=== PATIENT | female | born 1965 | race Caucasian/White ===

== ENCOUNTER 2018-03-15 05:40 | Day surgery (SDC) | payer OTHER ==
[~2018-03-15] VITALS: Ht 167.6 cm; Wt 64.9 kg
[~2018-03-15 05:40] MED LIST: CELEBREX200 MG PO; GABAPENTIN100 MG PO
[2018-03-15] MEDS ORDERED: MAPAP325 MG PO (09:00)
[2018-03-15] MEDS ORDERED: OXYCODON-ACETA1 EAC2 PO (09:00)
[2018-03-15] MEDS ORDERED: IBUPROFEN600 MG PO (09:00)
--- NOTE | 2018-03-15 09:00 | NUR ---
03/15/18 0900 Loretta Glass 0854 PATIENT ARRIVES TO PACU SLEEPING, MOANS OFF/ON. RESP EVEN AND UNLABORED, NC AT 2 LITERS.
--- NOTE | 2018-03-15 09:52 | NUR ---
PT IS BACK TO DS FROM PACU. SHE IS COMFORTABLE, REQUESTS A WARM BLANKET. FAMILY AT THE BESIDE. NO OTHER C/O'S AT THIS TIME. WILL REASSESS WITHIN THE HOUR.
--- NOTE | 2018-03-15 10:46 | NUR ---
PT REPORTS FEELING MORE AWAKE. FAMILY IS AT THE BEDSIDE. SHE HAS BEEN SIPPING ON WATER WITHOUT ISSUES. SHE WOULD LIKE SOMETHING FOR HER PAIN. NO OTHER C/O'S AT THIS TIME. WILL REASSESS WITHIN THE HOUR.
--- NOTE | 2018-03-15 11:42 | NUR ---
VINICIO 1115: PT IS ASSITED UP OOB TO THE BATHROOM. SHE WAS ABLE TO VOID 400MLS OF PALE YELLOW URINE
--- NOTE | 2018-03-15 12:00 | NUR ---
VINICIO 1150: PT VERBALIZES THAT SHE WOULD LIKE TO GO HOME AT THIS TIME. SHE IS EDUCATED ON HOW BEST TO GET DRESSED AND HER BANDAGES ARE REINFORCED. DC INSTRUCTIONS ARE GIVEN IN FRONT OF DAUGHTER.
--- NOTE | 2018-03-16 12:51 | OR ---
[facility] [address], [place] [address] Signed DATE OF OPERATION: 03/15/2018 SURGEON: Karen Winn MD PREOPERATIVE DIAGNOSES: 1. Persistent left pelvic pain. 2. History of abdominal hysterectomy in 1996 with preservation of tubes and ovaries. 3. History of left salpingo-oophorectomy (Dr. Zuniga, 2011) with lysis of adhesions. POSTOPERATIVE DIAGNOSIS: Scar tissue with persistent left ovarian tissue, left pelvic sidewall. PROCEDURES: 1. Laparoscopy with lysis of adhesions of sigmoid and pelvic sidewall. 2. Laparoscopic excision of left ovarian remnant. ANESTHESIA: General endotracheal; Consuelo Jamie, CHIEF PORT DIRECTOR, and local 20 mL of 0.25% Marcaine with epinephrine. INDICATION: This 52-year-old white woman is referred by Dr. Tolu Box of [place], [place]. She has persistent left lower abdominal and pelvic pain. Dr. Box performed colonoscopy, which was normal including no evidence of diverticulosis. Extensive evaluation on my part has shown no clear evidence of abnormality including CT scan that has been performed. Of note, the patient underwent hysterectomy with a Pfannenstiel incision in 1986 with preservation of tubes and ovaries and on January 08, 2012 underwent laparoscopy with left salpingo-oophorectomy and extensive lysis of adhesions by Dr. Lucy Zuniga. Findings at that time were said to have included extensive adhesions in the left pelvis related to the sigmoid. The left tube and ovary were found to be adherent to the bowel and sidewall. The left tube and ovary were excised at that time. The patient has had persisting left pelvic pain, rated 3/10, sometimes worsening. She is not known to have history of endometriosis. She is admitted at this time to undergo laparoscopy in hopes of discovering the source of her problem as well as remedy if possible. She understands as does her family, the risks of bleeding, infection, bowel injury, ureteral injury, and most importantly failure to cure her symptoms. Understands that she wished to proceed. FINDINGS: Electronically Signed By: KAREN WINN MD 03/16/18 1251 PATIENT NAME: PAOLO JONES OPERATIVE REPORT DATE OF : 69 REPORT #: [id number] PHYSICIAN: KAREN WINN MD PCP: TOLU BOX DO REPORT IS CONFIDENTIAL AND NOT TO BE RELEASED WITHOUT AUTHORIZATION [facility] [address], [place] [address] Signed Overall, the abdominal contents were normal. I did not see extensive adhesions of small bowel in any way. The left colon did have scar tissue in the medial aspect to the pelvis, which ultimately was found to have dense adhesions and what I believe to be persistence of ovarian remnant. This was dissected free from the pelvic sidewall freeing it entirely and excising a 2 cm remnant of dense white tissue, most likely a remnant of ovarian tissue. The right tube and ovary appeared normal and were left in situ. The colon showed no evidence of neoplasia or inflammatory change or diverticular change. The small bowel was normal in particular the terminal ileum as was the cecum. The liver appeared normal as did the stomach. I believe that her pain is likely related to scar tissue from remnant of ovarian tissue in the left pelvic sidewall and believe that she will be much improved with the operative intervention undertaken. DESCRIPTION OF PROCEDURE: The patient was brought to the operating room, given a general endotracheal anesthetic. She received preoperative antibiotic Ancef. Sequential compression device stockings were used and heparin subcutaneously administered. The abdomen was prepared with a chlorhexidine solution and draped sterilely. Of note, she had a well-healed low Pfannenstiel incision. A Stevenson catheter was not placed on this occasion. An infraumbilical incision was made and using an open Sara cannula technique, the abdomen was entered without problem. Pneumoperitoneum was achieved to a level of 14 mmHg and ultimately changed to 10 mmHg with carbon dioxide gas. Intraabdominal inspection showed no sign of ascites or carcinomatosis. Survey of the abdomen showed the liver and upper abdominal contents to be normal. The small bowel had some dilated loops with no sign of interloop adhesions or anything of that sort. A 12 mm epigastric port was placed and a camera was placed to that area. Using the blunt probe, manipulation was undertaken in the region of the sigmoid and sigmoid appeared normal. The left lower abdominal trocar was placed 5 mm in size, allowing for two-hand manipulation. There appeared to be some adhesions or scarring of the sigmoid to the pelvic brim, but these were left for later. Examination of the right adnexa showed remnant of tube and remnant of ovary to be normal. There was no evidence of endometriosis in the pelvis or elsewhere. The cecum was evaluated and found to be normal. The terminal ileum was normal. Small bowel was run proximally for a distance showing no sign of Meckel's diverticulum or other abnormality. The table was placed in the Trendelenburg position and further manipulation undertaken in the area of the sigmoid. Close inspection of the sigmoid colon showed no sign of Electronically Signed By: KAREN WINN MD 03/16/18 1251 PATIENT NAME: PAOLO JONES OPERATIVE REPORT DATE OF : 69 REPORT #: [id number] PHYSICIAN: KAREN WINN MD PCP: TOLU BOX DO REPORT IS CONFIDENTIAL AND NOT TO BE RELEASED WITHOUT AUTHORIZATION [facility] [address], [place] [address] Signed diverticulosis. There was a small jelly-like concretion on the surface of the colon, but it was the only one and it was of little import. The pelvis itself appeared normal. There was surgical absence of the uterus. The area of dense scarring of the sigmoid to the pelvic sidewall was then more carefully interrogated and with meticulous care manipulated. Lysis of adhesions was undertaken with blunt and sharp dissection ultimately revealing a point of more significant adhesions and a dense white scar-like area. This appeared to be over the iliac vein area and not far from the iliac artery proper. With careful manipulation, this mass was dissected free using blunt and minimal amounts of electrocautery, ultimately found likely to be a remnant of the left ovarian tissue from prior left salpingo-oophorectomy. It was definitely scarred to the sigmoid and pelvic sidewall and with great amount of care was dissected free completely and fully excised. Photographs were taken throughout. The remnant was about 2 cm in length and was extracted through the infraumbilical port using a grasping device to covering the lesion entirely. This was sent for permanent pathology. Irrigation was undertaken in the operative site. Excellent hemostasis was noted. Incomplete freeing the scar tissue accomplished. Excess irrigation fluid was suctioned free and the trocars removed under direct visualization showing no sign of bleeding. The infraumbilical fascial incision was reapproximated with interrupted 0 Vicryl suture. All wounds were copiously irrigated with saline solution and 20 mL of 0.25% Marcaine with epinephrine was injected locally. The skin was closed with interrupted 3-0 Vicryl and Steri-Strips were applied. The patient was ultimately extubated and transferred to recovery room in good condition having suffered no complications. Sponge, needle, and instrument counts were as correct x3. MD SAY Gee/MODL /[id number] cc: Tolu Box DO Copies: TOLU BOX DO ~ Electronically Signed By: KAREN WINN MD 03/16/18 1251 PATIENT NAME: PAOLO JONES OPERATIVE REPORT DATE OF : 69 REPORT #: [id number] PHYSICIAN: KAREN WINN MD PCP: TOLU BOX DO REPORT IS CONFIDENTIAL AND NOT TO BE RELEASED WITHOUT AUTHORIZATION
== END 2018-03-15 11:55 | disposition home or self-care (01) ==
LOC: DS 05:40
PROVIDERS: Surgery
PROC: 0UN14ZZ Release Left Ovary, Percutaneous Endoscopic Approach (ICD-10-PCS; principal; 2018-03-15 06:45)
DX: N83.8 Other noninflammatory disorders of ovary, fallopian tube and broad ligament (principal); N73.6 Female pelvic peritoneal adhesions (postinfective); Z90.710 Acquired absence of both cervix and uterus; Z90.721 Acquired absence of ovaries, unilateral; Z98.51 Tubal ligation status; Z91.040 Latex allergy status
CPT/HCPCS: 00840; J0131; J0690; J0735; J1100; J1644; J1885; J2250; J2405; J2550; J2704; J2765; J3475; J7120

== ENCOUNTER 2018-09-13 06:50 | Day surgery (SDC) | payer OTHER ==
[~2018-09-13] VITALS: Ht 167.6 cm; Wt 64.4 kg
[~2018-09-13 06:50] MED LIST changes: +IBUPROFEN600 MG PO; +MAPAP325 MG PO; +OXYCODON-ACETA1 EAC2 PO
--- NOTE | 2018-09-13 11:30 | NUR ---
09/13/18 1130 Michelle Borges 1123-PATIENT ARRIVED TO PACU ON 6L MASK O2 SAT 100% PATIENT REACTIVE TO VOICE BARELY OPENS EYES. RR EVEN. SR. LEFT LEG DRESSING CDI. LEFT LEG ELEVATED ON PILLOW. 1129-PATIENT SLEEPING VERY DROWSY AROUSES TO VERBAL STIMULI RAISES HAND AND DOZES BACK TO SLEEP. RR EVEN.
--- NOTE | 2018-09-13 12:16 | NUR ---
PT ALERT, ORIENTED AND SUPPORTED BY HER DAUGHTER ABBY. PT SEEMS PREPARED, HAD FEW QUESTIONS-REQUESTED PRAYER. WILL FOLLOW NEEDED
--- NOTE | 2018-09-13 12:30 | NUR ---
PT ARRIVED FROM PACU. REPORT RECEIVED FROM PRIETO GO. PT FEELS NEED TO VOID. BED CEJA PROVIDED, PT UNSUCESSFUL. ATTEMPTED TO GET UP TO COMODE, BUT NAUSEA STARTED. ZOFRAN GIVEN. ASSESSMENT DONE. CONTINIOUS PULSE OX PLACED. PT STATES NAUSEA "IS GONE." PT ASSISTED UP TO COMODE, VOIDS 600ML WITH OUT ISSUE. PT BACK TO BED, TOLERATED WELL. LEFT LEG ELVATED ON PILLOW AND WITH FOOT OF BED RAISED. PT DEMONSTARTES USE OF CALL LIGHT. NO ADDITIONAL REQUESTS OR COMPLAINTS AT THIS TIME. BED RAILSUP. FAMILY AT BEDSIDE.
--- NOTE | 2018-09-13 13:37 | NUR ---
PT RESTING IN BED ON M/S FOLLOWING SURGERY. SHE IS EATING CRACKERS-SAID HER STOMACH FEELS BETTER NOW. PARENTS IN RM VISITING, PT ACKNOWLEDGED PAIN AT 4. I EXTENDED A BLESSING, WILL FOLLOW NEEDED
--- NOTE | 2018-09-13 15:17 | NUR ---
THIS RN TO ROOM TO CHECK ON PT. PT REPORTING 5/10 PAIN THAT "IS COMING BACK UP." SEE MAR FOR MEDICATION GIVEN. PT DENIES NAUSEA. ICE CREAM AND COFFEE PROVIDED PER PT REQUEST. VITALS TAKEN. PT STATES SHE HAS NO ADDITIONAL REQUESTS OR COMPLAINTS AT THIS TIME.
--- NOTE | 2018-09-13 16:57 | NUR ---
AFTERNOON ASSESSMENT DUE. THIS RN TO BEDSIDE. PT REPORTS 5/10 PAIN AND STATES IT SEEMS TO BE GETTING WORSE. ASSESSMENT DONE. CMS INTACT. DRESSING GISELA. MD CALLED. NEW ORDER FOR PAIN MEDICATIONS PLACED. MEDICATION GIVEN (SEE MAR). PT ASSISTED UP TO COMODE. VOIDS AND BACK TO BED WITHOUT ISSUE, TOLERATED WELL. PT WATCHING TV. NO ADDITIONAL REQUESTS OR COMPLAINTS. BED RAILS UP. CALL LIGHT WITHIN REACH. PT ANTICIPATING VISIT FROM GRANDDAUGHTER.
--- NOTE | 2018-09-13 17:29 | NUR ---
PATIENT RESTING IN BED. DAUGHTER IN ROOM. VITAL SIGNS AND I&O DONE. ICE WATER GIVEN. CALL LIGHT WITHIN REACH. NO OTHER NEEDS AT THIS TIME.
--- NOTE | 2018-09-13 18:12 | OR ---
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 PROCEDURE: Excision of recurrent greater accessory varicose veins by stab phlebectomy technique, less than 20 incisions total. ANESTHESIA: General endotracheal; Consuelo Ayala CRNA. INDICATION: This 52-year-old white woman is a patient of Dr. Tolu Box, and known to me from the past having undergone laparoscopy with excision of a retained left ovarian remnant causing chronic pelvic pain. This operation occurred on March 15, 2018. She has had complete resolution of her pelvic pain since that time. The patient has undergone stab phlebectomy of varicose veins in the distant past and is noted to have market symptomatic recurrence of giant varicose veins extending from the medial aspect of the left leg extending over her knee and inferiorly as well. There were additional accessory varicose veins in the medial aspect of the calf and lateral aspect as well. Conservative measures have been ineffective in controlling her pain. She was admitted at this time to undergo excision of recurrent giant varicose veins, which are symptomatic. A stab phlebectomy technique will be used. The risks of bleeding, infection, recurrent varicose veins, and other unforeseen complications were reviewed in detail. She understands and wished to proceed. FINDINGS: The dominant venous disease was well marked in the anesthesia preoperative area allowing for accurate excision of the offending veins. Extended from the upper part of the left Electronically Signed By: KAREN WINN MD 09/13/18 1812 PATIENT NAME: PAOLO JONES OPERATIVE REPORT DATE OF : 69 REPORT #: [id number] PHYSICIAN: KAREN WINN MD PCP: TOLU BOX DO REPORT IS CONFIDENTIAL AND NOT TO BE RELEASED WITHOUT AUTHORIZATION [facility] [address], [place] [address] Signed mid thigh and directly over the knee including below the knee medially and laterally. Typical stab phlebectomy technique was used. Classification of the stab phlebectomy would be 10-20 stab incisions. There were some perforated vessels that were divided and ligated as well. DESCRIPTION OF PROCEDURE: The patient was brought to the operating room, given a general endotracheal anesthetic. Preoperative antibiotic Ancef was given. Sequential compression device stocking was used on the right leg and heparin subcutaneously administered. The marking from preoperative marking of the varicose veins was well demonstrated. After satisfactory general endotracheal anesthesia, the left leg was prepared with a chlorhexidine solution and draped sterilely. In the upper medial thigh, transverse incision was made with a #15 blade over the area designated as varicose vein. Dissection carried through the dermis sharply and with blunt dissection and hemostat. Large bulky vein was encountered and secured with a hemostat and using DeBakey forceps and hemostat technique, dissection was carried superior to its highest length. Hemostat applied. The vein divided and ligated with 3-0 Vicryl tie. Dissection was begun inferiorly with similar technique and once maximum length was obtained with dissection, a transverse incision was made more inferiorly. Sequential stab phlebectomy was undertaken throughout delivering the vein through the tunnel created. In the medial lower thigh, a perforating vessel was identified, secured, divided and ligated with 3-0 Vicryl as well. Multiple stab wounds were made in this way minimizing the number as much as possible, but certainly approaching 20 in total. Dissection was carried to accessory channels medially and laterally as well, which were much smaller vessels of course. The dominant vessels which were over the knee were similarly excised extending below the knee, mostly to the medial aspect to lateral as well. Once completed, the specimens of veins were sent for permanent pathology. At least two of perforated sites were secured with Vicryl ties as well. There was no untoward bleeding. The wounds were closed with single interrupted 2-0 Vicryl and Steri-Strips. The leg was then wrapped with Kerlix, subsequently an Brendan wrap and ultimately a loosely applied Coban dressing. Leg elevation was obtained. The patient was ultimately extubated and transferred to recovery room in good condition having suffered no complication. Sponge, needle, and instrument counts reported as correct x3. Karen Winn MD /MODL /[id number] Electronically Signed By: KAREN WINN MD 09/13/181811 PATIENT NAME: PAOLO JONES OPERATIVE REPORT DATE OF : 69 REPORT #: [id number] PHYSICIAN: KAREN WINN MD PCP: TOLU BOX DO REPORT IS CONFIDENTIAL AND NOT TO BE RELEASED WITHOUT AUTHORIZATION [address] [address] Signed cc: Tolu Box DO Copies: TOLU BOX DO ~ Electronically Signed By: KAREN WINN MD 09/13/18 1812 PATIENT NAME: PAOLO JONES OPERATIVE REPORT DATE OF : 69 REPORT #: [id number] PHYSICIAN: KAREN WINN MD PCP: TOLU BOX DO REPORT IS CONFIDENTIAL AND NOT TO BE RELEASED WITHOUT AUTHORIZATION
--- NOTE | 2018-09-13 18:17 | NUR ---
PT POST OP DAY ZERO FOR VERICOUS VEIN REMOVAL. PRN PAIN MEDICATIONS FOR 5/10 PAIN. PRN NAUSEA MEDICATIONS X1 THIS SHIFT. PT UP TO BEDSIDE COMODE, VOIDING QUANTITY SUFFICIENT. PT TOLERATING REGULAR DIET. FAMILY AT BEDSIDE. PT USING CALL LIGHT APPROPRIATLY.
--- NOTE | 2018-09-13 18:52 | NUR ---
PAIN REASSESSMENT DUE. THIS RN TO BEDSIDE. PT REPORTS 3/10 PAIN BUT STATES SHE WAS "A LITTLE NAUSEAOUS WITH DINNER." SEE MAR FOR MEDICATION GIVEN. PT ASSISTED UP TO COMODE. VOIDS WITHOUT ISSUE. PT TRANSFERES SELF BACK TO BED. LEGS ELEVATED. SCD'S IN PLACE. BED RAILS UP. CALL LIGHT WITHIN REACH.
--- NOTE | 2018-09-13 18:55 | NUR ---
CHARGE NURSE REPORT RECEIVED, FROM PRIETO DRISCOLL. PT IN BED, TALKING WITH HER DAY NURSE.
--- NOTE | 2018-09-13 19:10 | NUR ---
BEDSIDE REPORT RECEIVED FROM PRIETO LARA. PT AWAKE, SITTING UP IN BED WATCHING TV. SCDS IN PLACE. DRESSING CLEAN DRY AND INTACT LEFT LEG, ELEVATED WITH PILLOWS AND BED. PT DENIES NAUSEA. RATES PAIN 3/10 IN LLE. CALL LIGHT IN REACH, TRAY TABLE CLEARED.
--- NOTE | 2018-09-13 20:41 | NUR ---
PT ASSESSMENT COMPLETE AT THIS TIME, PT RATES PAIN 4/10 IN LLE. SENSATION INTACT, CSM INTACT BILATERALLY LOWER EXTREMITIES. PRN PO PAIN MEDICATIONS ADMINISTERED AT THIS TIME. PT GIVEN ICE WATER. CALL LIGHT IN REACH. PT RESTING IN BED, LIGHTS OFF IN ROOM.
--- NOTE | 2018-09-13 21:50 | NUR ---
V/S AND I&O DONE AND CHARTED. ICE WATER REFILLED.
--- NOTE | 2018-09-13 22:37 | NUR ---
CHECKED ON PT, APPEARS TO BE SLEEPING, EYES CLOSED, BREATHING NON-LABORED. SPO2 93% ON RA, HR [address] CONT. [address]ULSE OX IN [address]ACE. LLE ELEVATED.
--- NOTE | 2018-09-14 00:37 | NUR ---
IN ROOM TO HANG NEW BAG IVF. SBA TO RESTROOM FOR VOID, GAIT STEADY. PT RATES PAIN "REALLY GOOD", 3/10 IN LLE. DRESSING CDI, CSM INTACT BLE. PT DENIES NAUSEA, GIVEN AUTUMN CRACKERS, ICE CREAM, WATER PER REQUEST. VSS. CALL LIGHT IN REACH, LIGHTS OFF IN ROOM. SCD IN PLACE RIGHT LEG. LOWER EXTREMITIES ELEVATED ABOVE HEART.
--- NOTE | 2018-09-14 03:25 | NUR ---
CALL LIGHT ANSWERED, PRN PO PAIN MEDICATIONS ADMINISTERED FOR PT REPORTED PAIN 4-5/10 IN LLE. SBA TO RESTROOM FOR 500 ML VOID AND BACK TO BED. IVF INFUSING WNL. SCD IN PLACE, LLE ELEVATED. PT GIVEN ICE WATER, CALL LIGHT IN REACH. LIGHTS OFF IN ROOM. WARM BLANKET PROVIDED.
--- NOTE | 2018-09-14 05:01 | NUR ---
PT HAS DENIED NAUSEA THROUGHOUT SHIFT. PAIN WELL CONTROLLED WITH PO PRN PAIN MEDICATIONS. LLE ELEVATED THROUGHOUT SHIFT. BED REST WITH BRP. SBA TO RESTROOM, GAIT STEADY. DRESSING CDI LEFT LEG, CSM INTACT. PT TOLERATING REGULAR DIET WELL. IVF INFUSING WNL THROUGHOUT SHIFT. SCD IN PLACE.
--- NOTE | 2018-09-14 05:45 | NUR ---
CHECKED ON PT, SITTING UP IN BED EATING AUTUMN CRACKERS. PT RATES PAIN 3/10 IN LEFT LEG, STATES "THAT COMBINATION OF TYLENOL AND IBUPROFEN REALLY WORKS". ICE WATER, CALL LIGHT IN REACH. LEGS ELEVATED. SCD ON. IVF INFUSING WNL.
--- NOTE | 2018-09-14 07:16 | NUR ---
recieved report from eugenio naqvi. patient awake and alert in bed. scds on. iv fluids infusing, wnl. call light within reach. possessions at bedside. no more needs at this time. white board updated.
[2018-09-14] MEDS ORDERED: MAPAP325 MG PO (08:47)
--- NOTE | 2018-09-14 09:00 | NUR ---
PATIENT SITTING UP IN BED EATING BREAKFAST. WARM WASHCLOTH PROVIDED. CALL LIGHT IN REACH. NO FURTHER NEEDS AT THIS TIME.
--- NOTE | 2018-09-14 09:04 | NUR ---
ROUNDED ON PATIENT FOR MORNING ASSESSMENT AND MEDICATION ADMINISTRATION. PATIENT REPORTED "4/10" PAIN IN LEFT LEG, PRN PAIN MEDICATION PROVIDED. PATIENT DENIES SHORTNESS OF BREATHING OR DIFFICULTY BREATHING. DRESSING ON LEFT LEG IS C/D/I, LEFT EXTREMITY WARM TO TOUCH, CAPILLARY REFILL LESS THAN 2 SECONDS. SBA ASSIST PATIENT TO RESTROOM, DENIES DIZZINESS, PATIENT SAFELY BACK IN BED. IV SITE ASSESSED, NO SIGN OF REDNESS OR SWELLING, INFUSING WNL. CONSUMED 100% OF BREAKFAST, DENIES NAUSEA. ACTIVE BOWEL TONES, DENIES TENDERNESS. RIGHT SCD IN PLACE AND ON. BROUGHT PATIENT ICE WATER. BREAKFAST TRAY REMOVED. NO MORE NEEDS AT THIS TIME. CALL LIGHT WITHIN REACH.
--- NOTE | 2018-09-14 12:20 | NUR ---
PT DRESSED, ALERT AND ORIENTED. BEATRIZ WITH HER, WAITING FOR DC. PT SEEMS TO BE DOING WELL. EXTENDED A BLESSING, WILL FOLLOW NEEDED
== END 2018-09-14 10:40 | disposition home or self-care (01) ==
LOC: MS 06:50 → DS 06:50 → MS 12:31 → DS 12:31 → MS 16:25 → DS 09-14 10:40
PROVIDERS: Surgery
PROC: 06DY3ZZ Extraction of Lower Vein, Percutaneous Approach (ICD-10-PCS; principal; 2018-09-13 08:45)
DX: I83.12 Varicose veins of left lower extremity with inflammation (principal); Z91.040 Latex allergy status; Z79.899 Other long term (current) drug therapy
CPT/HCPCS: 00400; J0131; J0330; J0690; J0735; J1100; J1170; J1200; J1644; J1885; J2250; J2405; J2550; J2704; J2765; J3010; J3475; J7120